=== PATIENT | female | born 1930 | race Caucasian/White ===

== ENCOUNTER 2016-06-01 08:53 | Inpatient (IN) | payer OTHER ==
[2016-06-01] MEDS ORDERED: ZOFRAN IV ONE (09:35)
[2016-06-01] MEDS ORDERED: MORPHINE IV ONE (09:35)
--- NOTE | 2016-06-01 09:35 | PROVIDER DOCUMENTATION ---
HPI-Abdominal Pain/GI Problem <Katelynn Price - Last Filed: 06/01/16 12:30> - General Source: patient - History of Present Illness-ABD Nature of Presenting Problems: 85 y/o WF c daughter at bedside, c/o lower abdominal pain and 10 episodes of diarrhea since yesterday at this time. Reports LLQ pain that radiates down to the suprapubic area. Daughter reports a temperature of 99.5 F last night, which she has been given tylenol for. She has recently been admitted and treated for diverticulitis, treated with Cipro and Flagyl, with last dose 2 weeks ago today. States she hasn't been having many problems until yesterday, but the Bentyl she was rx for the diarrhea has not been helping the constant pain she was having since the diverticulitis. She has been eating a soft diet. <Melva Oakley - Last Filed: 06/01/16 13:51> - General Chief Complaint: Diarrhea Stated Complaint: DIARRHEA,ABD PAIN Time Seen by Provider: 06/01/16 09:21 Allergies/Adverse Reactions: Patient Allergies Allergy/AdvReac Type Severity Reaction Status Date / Time Penicillins Allergy RASH Verified 06/01/16 12:46 procaine HCl * Allergy Unknown Verified 06/01/16 12:46 [From Novocain] Home Medications: Home Medication List Medication Instructions Recorded Confirmed Last Taken Type Levothyroxine [Synthroid] 75 microgm PO DAILY 05/09/16 06/01/16 06/01/16 05:00 History Dicyclomine [Bentyl] 10 mg PO TID PRN #20 capsule 05/11/16 06/01/16 06/01/16 05: 00 Rx Lactobacillus Rhamnosus GG 1 each PO BID #0 capsule 05/11/16 06/01/16 Unknown Rx [Culturelle] Review of Systems - Adult - REVIEW OF SYSTEMS - ADULT Constitutional: reports: see HPI, fever, fatique. denies: chills Eyes: reports: no symptoms reported. denies: blurred vision, double vision, eye pain Ears, Nose, Mouth & Throat: reports: no symptoms reported. denies: ear pain, nose pain, throat pain Cardiovascular: reports: no symptoms reported. denies: chest pain, palpitations Respiratory: reports: no symptoms reported. denies: cough, shortness of breath , wheezing Gastrointestinal: reports: see HPI, abdominal pain, diarrhea, nausea, poor appetite. denies: rectal bleeding, vomiting Genitourinary: reports: no symptoms reported. denies: dysuria Musculoskeletal: reports: no symptoms reported. denies: bone pain, back pain, muscle aches Integumentary: reports: no symptoms reported. denies: rash Neurological: reports: no symptoms reported. denies: ataxia, dizziness/vertigo , headache/migraines Psychiatric: reports: no symptoms reported Endocrine: reports: no symptoms reported Hematologic/Lymphatic: reports: no symptoms reported Allergic/Immunologic: reports: no symptoms reported All Other Systems: Reviewed and Negative <Melva Oakley - Last Filed: 06/01/16 13:51> Past History - Adult - PAST MEDICAL HISTORY-ADULT Review of Records: reports: Old Records Reviewed, Nursing Assessment Review, Medications Reviewed, Social history reviewed & non-contributory. Major Childhood Illnesses: reports: denies history Cardiovascular: reports: denies history Respiratory: reports: denies history Gastrointestinal: reports: denies history Obstetrical/Gynecological: reports: denies history Genitourinary: reports: denies history Musculoskeletal: reports: denies history Neurological: reports: denies history Endocrine/Immune: reports: thyroid disorder Other Conditions: reports: denies history - FAMILY HISTORY Family History: reviewed, not pertinent - SOCIAL HISTORY Smoking: denies Substance Use: none/never Alcohol Use Frequency: never <Melva Oakley - Last Filed: 06/01/16 13:51> Physical Exam-General - PHYSICAL EXAM-ADULT Initial Vital Signs Reviewed: Yes - CONSTITUTIONAL General Appearance: appears well, alert, no apparent distress - EYES Eyes: PERRL/EOMI, pink conjunctivae - HEAD, EARS, NOSE, MOUTH & THROAT HENMT: normocephalic/atraumatic, moist mucous membranes, normal ENT inspection - NECK Neck: non-tender, full range of motion, supple, normal inspection. negative: lymphadenopathy - RESPIRATORY Respiratory: chest non-tender, lungs clear, normal breath sounds, no pleuratic chest pain, no respiratory distress, no accessory muscle use. negative: respiratory distress, decreased breath sounds, accessory muscle use, crackles, rales, rhonchi, wheezing - CARDIOVASCULAR Cardiovascular: normal peripheral pulses, regular rate, rhythm - GASTROINTESTINAL (ABDOMEN) Abdominal Exam: normal bowel sounds, soft, no organomegaly, no pulsatile mass, tenderness (LLQ) - MUSCULOSKELETAL Extremity: normal range of motion, normal gait Peripheral Pulses: radial (R): 2+, radial (L): 2+, dorsalis-pedis (R): 2+, dorsalis-pedis (L): 2+ - SKIN Integumentary: normal color, normal turgor, warm/dry - NEUROLOGIC Neurologic: grossly normal, no motor/sensory deficits - PSYCHIATRIC Psych/Mental Status: normal mood/affect, normal thought content, normal thought process, oriented x 3 <Melva Oakley - Last Filed: 06/01/16 13:51> Progress - EKG 1 Time of EKG reading by physician:: 12:11 EKG Read and Signed by:: Kierra Gupta EKG Interpretation (*Must complete 3 of following elements*): Abnormal Rate: 91 Rhythm: sinus rhythm with premature atrial complexes [place]: left (deviation) QRS: LBB <Katelynn Price - Last Filed: 06/01/16 12:30> - PLAN OF CARE/RESULTS Progress/Plan/Lab Results: I have paged PCP twice, no response in 1 hour. PCP not called back in 2 hours Vital Signs Temp Pulse Resp BP Pulse Ox 06/01/16 11:55 90 14 159/64 96 06/01/16 09:02 98.4 F 82 18 154/56 100 Penicillins Allergy (Verified 06/01/16 12:46) RASH procaine HCl * [From Novocain] Allergy (Verified 06/01/16 12:46) Unknown caused heart to race Levothyroxine [Synthroid] 75 microgm PO DAILY 05/09/16 Dicyclomine [Bentyl] 10 mg PO TID PRN #20 capsule 05/11/16 Lactobacillus Rhamnosus GG [Culturelle] 1 each PO BID #0 capsule 05/11/16 Laboratory 06/01/16 06/01/16 06/01/16 09:20 09:20 09:20 WBC 8.60 RBC 4.73 Hgb 13.8 Hct 40.2 MCV 85.0 MCH 29.2 MCHC 34.3 RDW Std Deviation 13.3 Plt Count 225 MPV 11.2 H Immature Gran % (Auto) 0.2 Neut % (Auto) 62.5 Lymph % (Auto) 23.0 [place] % (Auto) 12.4 H Eos % (Auto) 1.4 Baso % (Auto) 0.5 Immature Gran # (Auto) 0.02 Neut # (Auto) 5.37 Lymph # (Auto) 1.98 [place] # (Auto) 1.07 H Eos # (Auto) 0.12 Baso # (Auto) 0.04 Sodium 131 L Potassium 2.9 L Chloride 89 L Carbon Dioxide 26 Anion Gap 16 BUN 9 Creatinine 0.7 Estimated GFR/1.73 m2 > 60 BUN/Creatinine Ratio 13 Glucose 107 H Calculated Osmolality 262 Calcium 8.8 Total Bilirubin 0.74 AST 28 ALT 18 Alkaline Phosphatase 59 Total Protein 6.3 Albumin 3.6 Globulin 2.7 Albumin/Globulin Ratio 1.3 Amylase 52 Lipase 25 Urine Source CLEAN CATCH Urine Color YELLOW Urine Turbidity HAZY Urine pH 6.0 Ur Specific [place] 1.017 Urine Protein 30 A Ur Glucose (Stick) NEGATIVE Ur Ketones (Stick) NEGATIVE Urine Blood TRACE A Urine Nitrite NEGATIVE Urine Bilirubin NEGATIVE Urobilinogen Dipstick NORMAL Urine Leukocytes LARGE A Urine WBC (Auto) TNTC A Urine RBC (Auto) 10-20 A U Epithel Cells (Auto) >10 A Urine Bacteria (Auto) 2+ Urine Crystals NONE SEEN Small Round Cells RENAL PRESENT Urine Casts NONE SEEN Urine Yeast-like Cells NONE SEEN Orders Category Date Time Status Admit - [facility] Routine AdmDCTranf 06/01/16 13:49 Ordered Saline Loc NOW Care 06/01/16 09:35 Active AMYLASE [CHEM] Stat Lab 06/01/16 09:20 Completed C DIFF TOXIN [STOOL] Stat Lab 06/01/16 12:59 Received CBC WITH ELECTRONIC DIFF [HEME] Stat Lab 06/01/16 09:20 Completed COMPREHENSIVE METABOLIC PANEL [CHEM] Stat Lab 06/01/16 09:20 Completed LIPASE [CHEM] Stat Lab 06/01/16 09:20 Completed OVA AND PARASITE W/TRICHROME [STOOL] Stat Lab 06/01/16 12:59 Received STOOL CULTURE [RM] Routine Lab 06/01/16 12:59 Received URINALYSIS W/POSS RFLX CULT [URINALYSIS] Stat Lab 06/01/16 09:20 Completed URINE CULTURE [RM] Routine Lab 06/01/16 10:30 Received URINE MANUAL MICROSCOPIC [URINALYSIS] Stat Lab 06/01/16 09:20 Completed WBC STOOL [STOOL] Stat Lab 06/01/16 12:59 Received 0.9% Sodium Chloride Inj [Ns] 1,000 ml Med 06/01/16 11:00 Active IV 85 mls/hr CefTRIAXONE 1 GM/NS [Rocephin 1 gm/Ns] 50 ml Med 06/01/16 10:40 Discontinued IV NOW Flagyl 500 mg IV Now Med 06/01/16 13:48 Ordered Metronidazole 500 mg/Ns [Flagyl 500 mg/Ns] 100 ml IV NOW Levaquin 750 mg/D5w IV Now Med 06/01/16 13:48 Ordered Levofloxacin 750 mg/D5w [Levaquin 750 mg/D5w] 150 ml IV NOW Morphine Med 06/01/16 09:57 Discontinued 2 mg .ROUTE .STK-MED ONE Morphine Med 06/01/16 09:35 Discontinued 2 mg IV NOW ONE Ondansetron [Zofran] Med 06/01/16 09:35 Discontinued 4 mg IV NOW ONE Potassium Chloride 10 Meq/Swi 100 ml Med 06/01/16 11:00 Discontinued IV ONCE Potassium Chloride E.r. [Klor-Con] Med 06/01/16 13:48 Once 20 meq PO NOW ONE EKG [EKG] Stat Ther 06/01/16 11:50 Draft Transfer/Admit Order [TRANSFER] Routine Transfer 06/01/16 13:50 Ordered - REASSESSMENT Reassessment #1 Time Reassessed: 12:24 (discussed with patient and family. They would feel more comfortable with admission. HR now 95. K stopped secondary to burning. ) Status: unchanged - CONSULTS/PCP/HOSPITALIST Notification #1 *Consult/PCP/Hospitalist*: Dr. Figueredo, PCP Time Discussed: 13:50 Reason/Comments: diarrhea, uti, dehydration, hyponatremia, hypokalemia Consult Disposition: Admit (start Levoquin and Flagyl) <Melva Oakley - Last Filed: 06/01/16 13:51> Departure <Katelynn Price - Last Filed: 06/01/16 12:30> - Departure Time of Disposition Order: 13:50 Certified Medical Emergency: Emergent <Melva Oakley - Last Filed: 06/01/16 13:51> - Departure DIAGNOSIS: Acute UTI, Hyponatremia, Hypokalemia, Dehydration Disposition: ADMITTED INPATIENT 09 Condition: Stable Attestation - Physician/ RIKKI Attestation Patient care was provided by Advanced Practice Provider:: Yes Advanced Practice Provider:: Melva Oakley Advanced Practice Provider documentation review:: The Mid-level provider documentation, treatment plan and medical decision making was reviewed by the physician who agrees with all treatment and medical decision making by the MLP. <Melva Oakley - Last Filed: 06/01/16 13:51> Physician Attestation
[2016-06-01] MEDS ORDERED: MORPHINE ONE (09:57)
[2016-06-01 10:00] LABS: MANUAL DIFF NEEDED? NO; URINE SOURCE CLEAN CATCH
[2016-06-01 10:15] LABS: BASO% 0.5 % (0.0-0.8); EOS# 0.12 X1000 (0.0-0.7); EOS% 1.4 % (0.0-10.0); HEMATOCRIT 40.2 % (37.0-47.0); HEMOGLOBIN 13.8 g/dL (12.0-16.0); IMM GRAN# 0.02 X1000 (0.0-0.04); IMM GRAN% 0.2 % (0.0-0.5); LYMPH# 1.98 X1000 (1.2-3.4); MCH 29.2 PG (27-31); MCHC 34.3 g/dL (33-37); MONO# 1.07 X1000 (0.11-0.59); MONO% 12.4 % (1.7-9.3); MPV 11.2 FL (7.4-10.4); NEUT% 62.5 % (42.2-75.2); PLT 225 X1000 (130-400); RBC 4.73 XMIL (4.2-5.4)
[2016-06-01 10:16] LABS: BILIRUBIN URINE NEGATIVE (NEGATIVE); BLOOD URINE TRACE (NEGATIVE); COLOR YELLOW; GLUCOSE URINE NEGATIVE (NEGATIVE); LEUKOCYTES URINE LARGE (NEGATIVE); NITRITE URINE NEGATIVE (NEGATIVE); PROTEIN URINE 30 mg/dL (NEGATIVE); SP GRAVITY URINE 1.017; TURBIDITY URINE HAZY (CLEAR); UROBILINOGEN URINE NORMAL (NORMAL)
[2016-06-01 10:21] LABS: URINE MICRO REVIEW NEEDED? YES
[2016-06-01 10:25] LABS: UR EPITHELIAL CELLS >10 /HPF (<10); URINE BACTERIA 2+ /HPF; URINE CULTURE NEEDED? YES; URINE WBC TNTC /HPF (<10)
[2016-06-01 10:34] LABS: URINE CASTS NONE SEEN; URINE CRYSTALS NONE SEEN
[2016-06-01 10:35] LABS: URINE SMALL ROUND CELLS RENAL PRESENT
[2016-06-01 10:40] LABS: AGAP 16; ALBUMIN 3.6 g/dL (3.5-5.0); ALKALINE PHOSPHATASE 59 U/L (32-104); AMYLASE 52 U/L (20-200); BUN 9 mg/dL (8-22); CALCIUM 8.8 mg/dL (8.8-10.2); CHLORIDE 89 mmol/L (98-107); COSMO 262; GOT 28 U/L (10-30); GPT 18 U/L (10-36); LIPASE 25 U/L (13-60); POTASSIUM 2.9 mmol/L (3.5-5.1); SODIUM 131 mmol/L (136-145); TCO2 26 mmol/L (25-35); TOTAL BILIRUBIN 0.74 mg/dL (0.20-1.00); TOTAL PROTEIN 6.3 g/dL (6.3-8.3)
[2016-06-01] MEDS ORDERED: ROCEPHIN 1 GM/NS 50 ML IV ONE (10:40)
[2016-06-01] MEDS ORDERED: POTASSIUM CHLORIDE 10 MEQ/SWI 100 ML IV ONE (11:00)
[2016-06-01] MEDS ORDERED: NS 1,000 ML IV ONE (11:00)
--- NOTE | 2016-06-01 12:38 | EKG Report ---
Test Performed on : 06/01/2016 12:11:35 PM Test Reason : hypokalemia Blood Pressure : / mmHG Vent. Rate : 091 BPM Atrial Rate : 091 BPM P-R Int : 160 ms QRS Dur : 124 ms QT Int : 378 ms P-R-T Axes : 000 -59 111 degrees QTc Int : 464 ms Sinus rhythm. with premature atrial complexes. Left axis deviation Left bundle branch block Abnormal ECG When compared with ECG of 01-JUN-2016 12:00, (Unconfirmed) Sinus rhythm. has replaced Atrial fibrillation. Unconfirmed Result
[2016-06-01] MEDS ORDERED: LEVAQUIN 750 MG/D5W 150 ML IV ONE (13:48)
[2016-06-01] MEDS ORDERED: FLAGYL 500 MG/NS 100 ML IV ONE (13:48)
[2016-06-01] MEDS ORDERED: KLOR-CON PO ONE (13:48)
[2016-06-01] MEDS: TYLENOL PO PRN (15:59)
--- NOTE | 2016-06-01 19:47 | HISTORY AND PHYSICAL ---
CHIEF COMPLAINT: Abdominal pain, diarrhea, low-grade fever. HISTORY OF PRESENT ILLNESS: She is an 85-year-old, pleasant, white female, recently discharged from the hospital last month for diverticulitis. She came in with diarrhea and lower abdominal cramps. Workup in the ER: Potassium is 2.9, sodium is 131. Stool cultures had C. difficile positive and admitted to the hospital for C. difficile colitis. Results were discussed with the patient's family. She was started on IV fluids, IV Flagyl, Welchol and replace the potassium. Currently stable. PAST MEDICAL HISTORY: Hypertension, hypothyroidism, diverticulitis recently, osteopenia, acid reflux disease. PAST SURGICAL HISTORY: Bilateral cataract surgery, partial hysterectomy, hemorrhoidectomy. MEDICATIONS: Dyazide, Synthroid, Culturelle, Cipro last month. ALLERGIES: Penicillin and tramadol. SOCIAL HISTORY: Single. Retired. Lives in [place]. No smoking. No alcohol. FAMILY HISTORY: Father of prostate cancer at 70. Mom of old age at 101. HEALTH MAINTENANCE: Flu vaccine 2015. Pneumococcal vaccine 2009. Last colonoscopy in [place]. Waiting for colonoscopy by Dr. Ureña. DEXA scan 2013. Mammography August 2013. REVIEW OF SYSTEMS: HEENT: No headache. No dizziness. No earache. No sore throat. Neck: No goiter. No lymphadenopathy. No bruit. Cardiopulmonary: No chest pain, shortness of breath, PND, orthopnea. Gastrointestinal: Lower abdominal cramps, diarrhea. Genitourinary: History of hesitancy, frequency. Extremities: No swelling of legs. No joint pain. Skin: No skin rashes. Neurologic: No focal symptoms or weakness. PHYSICAL EXAMINATION: VITAL SIGNS: Low-grade fever. Vitals are stable. 5 feet 2 inches. 150 pounds. HEENT EXAMINATION: Atraumatic, normocephalic. Pupils equal and reactive to light. TMs are normal. Nose and throat within normal limits. NECK: Supple. No lymphadenopathy. No goiter. CHEST: Bilateral air entry. No rales. No wheezing. HEART: Sounds are regular. No murmur. ABDOMEN: Belly is soft. Tender in the lower abdominal area. No signs of guarding or rigidity. RECTAL: Deferred. EXTREMITIES: No peripheral edema, cyanosis or clubbing. NEUROLOGIC EXAMINATION: Nonfocal. INVESTIGATIONS: CBC: White cell count 8.6, hematocrit 40, platelets 225,000. SMA 7 is normal. Sodium 131, potassium 2.9, glucose 107. LFTs: Amylase and lipase normal. Urinalysis: Positive for UTI. Stool cultures: C. difficile is positive. ASSESSMENT AND PLAN: 1. An 85-year-old white female, recently treated for diverticulitis with Cipro and Flagyl. Admitted to the hospital with diarrhea, dehydration with C. difficile colitis. Plan is IV fluids. 2. IV potassium. 3. DVT prophylaxis with antithrombotic stockings. 4. IV Flagyl, Welchol and Culturelle. CT scan of the abdomen and pelvis in the morning. Continue home medications. 5. Gastrointestinal prophylaxis with IV Protonix. 6. We will follow up on the labs in the morning.
[2016-06-01] MEDS: POTASSIUM CHLORIDE 20 MEQ/SWI 100 ML IV SCH (20:40)
[2016-06-01] MEDS: ZOFRAN IV PRN (20:41)
[2016-06-01] MEDS: PROTONIX IV SCH (20:41)
[2016-06-01] MEDS: CULTURELLE PO SCH (20:41)
[2016-06-01] MEDS: NS 1,000 ML IV SCH (22:38)
[2016-06-01] MEDS: BENTYL PO PRN (22:59)
[2016-06-01] MEDS: WELCHOL PO SCH (22:59)
[2016-06-02] MEDS: TYLENOL PO PRN (00:40)
[2016-06-02] MEDS: FLAGYL 500 MG/NS 100 ML IV SCH ×3 (01:59→19:00)
[2016-06-02 06:40] LABS: MANUAL DIFF NEEDED? NO
[2016-06-02 06:44] LABS: BASO% 0.6 % (0.0-0.8); EOS# 0.13 X1000 (0.0-0.7); EOS% 1.5 % (0.0-10.0); HEMATOCRIT 34.6 % (37.0-47.0); HEMOGLOBIN 11.8 g/dL (12.0-16.0); IMM GRAN# 0.02 X1000 (0.0-0.04); IMM GRAN% 0.2 % (0.0-0.5); LYMPH# 1.61 X1000 (1.2-3.4); LYMPH% 18.5 % (20.5-51.1); MCH 29.2 PG (27-31); MCHC 34.1 g/dL (33-37); MCV 85.6 FL (81-99); MONO# 1.34 X1000 (0.11-0.59); MONO% 15.4 % (1.7-9.3); MPV 10.8 FL (7.4-10.4); NEUT% 63.8 % (42.2-75.2); PLT 203 X1000 (130-400); RBC 4.04 XMIL (4.2-5.4)
[2016-06-02] MEDS: NORCO-5 PO PRN ×2 (06:49→21:54)
[2016-06-02] MEDS: BENTYL PO PRN (06:49)
[2016-06-02] MEDS: ZOFRAN IV PRN (06:53)
[2016-06-02 07:03] LABS: AGAP 11; BUN 9 mg/dL (8-22); CALCIUM 8.2 mg/dL (8.8-10.2); CHLORIDE 99 mmol/L (98-107); COSMO 268; SODIUM 135 mmol/L (136-145); TCO2 25 mmol/L (25-35)
[2016-06-02] MEDS ORDERED: WELCHOL PO SCH (09:00)
--- NOTE | 2016-06-02 09:51 | Diag Imaging Result Document ---
PROCEDURE NAME: CT ABD/PELVIS W/ IV CONT ONLY - 06/02/2016 CT ABDOMEN AND PELVIS WITH IV CONTRAST: COMPARISON: 05/10/2016. FINDINGS: There is a new focal opacity at the periphery of the right lung base, likely representing focal atelectasis versus pneumonitis. There is sigmoid colonic diverticulosis. Although there is still inflammatory change and thickening involving the segment of the sigmoid colon that was consistent with diverticulitis on the previous study, there is now actually diffuse thickening that involves practically the entire colon, but is much more significant at the descending colon and sigmoid colon. There is milder transverse colonic thickening and surrounding inflammatory change and, perhaps, minimal involvement of the ascending colon. This pattern is consistent with colitis, likely infectious, as opposed to the focal diverticulitis seen on the previous study. No discrete loculated fluid collection is identified to indicate abscess. There is no evidence of bowel obstruction. There is no evidence of free abdominal gas. The abdomen and pelvis are otherwise essentially stable, as compared to the recent previous study. IMPRESSION: Development of diffuse colitis, likely infectious, that is most severe at the descending and sigmoid colon.
[2016-06-02] MEDS: CULTURELLE PO SCH ×2 (10:46→21:54)
[2016-06-02] MEDS: WELCHOL PO SCH ×3 (10:46→17:18)
[2016-06-02] MEDS: SYNTHROID PO SCH (10:46)
[2016-06-02] MEDS: SODIUM CHLORIDE 0.9% INJ SCH (21:54)
[2016-06-02] MEDS: PROTONIX IV SCH (21:55)
[2016-06-02] MEDS: NS 1,000 ML IV SCH (21:55)
[2016-06-03] MEDS: FLAGYL 500 MG/NS 100 ML IV SCH ×4 (03:00→19:38)
[2016-06-03] MEDS: NORCO-5 PO PRN ×2 (06:55→19:36)
[2016-06-03] MEDS: CULTURELLE PO SCH ×3 (08:48→23:49)
[2016-06-03] MEDS: WELCHOL PO SCH ×3 (08:48→16:40)
[2016-06-03] MEDS: SYNTHROID PO SCH (08:48)
[2016-06-03] MEDS: NS 1,000 ML IV SCH ×3 (10:56→23:49)
[2016-06-03] MEDS: PROTONIX IV SCH (19:37)
[2016-06-03] MEDS: SODIUM CHLORIDE 0.9% INJ SCH (19:37)
[2016-06-04] MEDS: NORCO-5 PO PRN (01:49)
[2016-06-04] MEDS: FLAGYL 500 MG/NS 100 ML IV SCH ×3 (04:30→21:49)
[2016-06-04] MEDS: WELCHOL PO SCH ×3 (09:55→17:40)
[2016-06-04] MEDS: SYNTHROID PO SCH (09:55)
[2016-06-04] MEDS: CULTURELLE PO SCH ×2 (09:55→21:49)
[2016-06-04] MEDS: NS 1,000 ML IV SCH ×2 (10:47→23:02)
[2016-06-04] MEDS: SODIUM CHLORIDE 0.9% INJ SCH (21:49)
[2016-06-04] MEDS: PROTONIX IV SCH (21:49)
[2016-06-05] MEDS: FLAGYL 500 MG/NS 100 ML IV SCH ×3 (03:20→20:38)
[2016-06-05] MEDS: WELCHOL PO SCH ×3 (10:36→17:27)
[2016-06-05] MEDS: SYNTHROID PO SCH (10:36)
[2016-06-05] MEDS: CULTURELLE PO SCH ×2 (10:36→20:38)
[2016-06-05] MEDS: SODIUM CHLORIDE 0.9% INJ SCH (20:38)
[2016-06-05] MEDS: PROTONIX IV SCH (20:38)
[2016-06-06] MEDS: FLAGYL 500 MG/NS 100 ML IV SCH ×3 (03:13→20:29)
[2016-06-06 06:34] LABS: MANUAL DIFF NEEDED? NO
[2016-06-06 06:47] LABS: BASO% 1.2 % (0.0-0.8); EOS# 0.38 X1000 (0.0-0.7); EOS% 4.4 % (0.0-10.0); HEMATOCRIT 35.3 % (37.0-47.0); HEMOGLOBIN 11.7 g/dL (12.0-16.0); IMM GRAN# 0.28 X1000 (0.0-0.04); IMM GRAN% 3.3 % (0.0-0.5); LYMPH# 4.31 X1000 (1.2-3.4); LYMPH% 50.4 % (20.5-51.1); MCH 28.7 PG (27-31); MCHC 33.1 g/dL (33-37); MCV 86.5 FL (81-99); MONO# 0.86 X1000 (0.11-0.59); MONO% 10.1 % (1.7-9.3); MPV 10.4 FL (7.4-10.4); NEUT% 30.6 % (42.2-75.2); PLT 255 X1000 (130-400); RBC 4.08 XMIL (4.2-5.4)
[2016-06-06 07:23] LABS: AGAP 12; BUN 4 mg/dL (8-22); CALCIUM 7.8 mg/dL (8.8-10.2); CHLORIDE 106 mmol/L (98-107); COSMO 281; POTASSIUM 3.8 mmol/L (3.5-5.1); SODIUM 143 mmol/L (136-145); TCO2 25 mmol/L (25-35)
[2016-06-06] MEDS: CULTURELLE PO SCH ×2 (10:02→20:29)
[2016-06-06] MEDS: WELCHOL PO SCH ×3 (10:02→17:01)
[2016-06-06] MEDS: SYNTHROID PO SCH (10:02)
[2016-06-06] MEDS: PROTONIX IV SCH (20:29)
[2016-06-06] MEDS: SODIUM CHLORIDE 0.9% INJ SCH (20:29)
[2016-06-07] MEDS: FLAGYL 500 MG/NS 100 ML IV SCH ×3 (03:35→21:42)
[2016-06-07] MEDS: PRILOSEC PO SCH ×2 (07:05→23:45)
[2016-06-07] MEDS: SYNTHROID PO SCH (08:17)
[2016-06-07] MEDS: CULTURELLE PO SCH ×2 (08:17→21:41)
[2016-06-07] MEDS: WELCHOL PO SCH ×3 (08:17→16:45)
[2016-06-07] MEDS ORDERED: APRESOLINE IV PRN (14:17)
--- NOTE | 2016-06-07 15:13 | Diag Imaging Result Document ---
PROCEDURE NAME: CHEST-PORTABLE - 06/07/2016 SINGLE FRONTAL RADIOGRAPH OF THE CHEST: COMPARISON: None available. FINDINGS: There is suggestion of mild interstitial scarring at the lung bases. The lungs are essentially clear, otherwise. Cardiac silhouette is grossly unremarkable. IMPRESSION: Interstitial thickening at the lung bases suggesting likely mild scarring.
[2016-06-07] MEDS: BENTYL PO PRN (21:41)
[2016-06-07] MEDS: NORCO-5 PO PRN (23:45)
[2016-06-07] MEDS: ZOFRAN IV PRN (23:45)
[2016-06-08] MEDS: FLAGYL 500 MG/NS 100 ML IV SCH (05:55)
[2016-06-08] MEDS: PRILOSEC PO SCH (06:34)
[2016-06-08] MEDS: NORCO-5 PO PRN (06:37)
[2016-06-08 07:51] VITALS: BP 153/63
[2016-06-08] MEDS: CULTURELLE PO SCH (09:27)
[2016-06-08] MEDS: SYNTHROID PO SCH (09:27)
[2016-06-08] MEDS: WELCHOL PO SCH (09:27)
--- NOTE | 2016-06-10 21:35 | DISCHARGE SUMMARY ---
ADMISSION DATE: 06/01/2016 DISCHARGE DATE: 06/08/2016 DISCHARGING DIAGNOSIS: Abdominal pain, diarrhea due to Clostridium difficile colitis. SECONDARY DIAGNOSES: 1. Hypertension. 2. Hypothyroidism. 3. Diverticulitis. 4. Osteopenia. 5. Acid reflux disease. BRIEF HISTORY: Please see the H and P that was done on 06/01/2016. In brief she is an 85-year- old white female, recently was treated a month ago for sigmoid diverticulitis. Patient was sent home on antibiotics with Levaquin and Flagyl. She is supposed to get colonoscopy in 6 weeks. In the meantime she had a recurrence of symptoms for the last 2 days with diarrhea associated with dehydration. Sodium 131, potassium 2.9. Stool cultures are positive for C. difficile. As a result, hospital admission was warranted. HOSPITAL COURSE: She was given IV fluids, replaced the potassium and also started on IV Flagyl and Welchol. Patient slowly improved. During this admission patient also had a CT scan of the abdomen and pelvis and it showed development of diffuse colitis consistent with C. difficile. Patient was also given probiotics and slowly GI soft diet without milk products and greasy products. She is tolerating very well. LABS: At the time of discharge. CBC. White cell count 8.5, hematocrit 35, platelets 255,000. SMA 7. Sodium 143, potassium 3.8, chloride 106, BUN 4, creatinine 0.7, calcium 7.8. LFTs were normal. Microbiology. Urine cultures were negative. C. difficile toxin A and B were positive. DISCHARGE INSTRUCTIONS: 1. Outpatient home health care. 2. Synthroid 75 mcg daily. 3. Probiotics 1 tablet p.o. b.i.d. 4. Bentyl as needed. 5. Dyazide 1 tablet daily. 6. Flagyl 500 t.i.d. for 2 weeks. FOLLOWUP: My office in next week.
== END 2016-06-08 10:30 | DRG 372 ==
LOC: ED 08:53 → 3N 14:49
PROVIDERS: ADMIT Internal Medicine; ATTEND Internal Medicine
DX: A04.7 Enterocolitis due to Clostridium difficile (principal); E87.1 Hypo-osmolality and hyponatremia; E86.0 Dehydration; N39.0 Urinary tract infection, site not specified; E83.51 Hypocalcemia; D64.9 Anemia, unspecified; I10 Essential (primary) hypertension; E03.9 Hypothyroidism, unspecified; K21.9 Gastro-esophageal reflux disease without esophagitis; M85.80 Other specified disorders of bone density and structure, unspecified site; Z79.899 Other long term (current) drug therapy; Z80.42 Family history of malignant neoplasm of prostate
CPT/HCPCS: 71010; 74177; 80048; 80053; 81001; 82150; 83690; 85025; 87045; 87046; 87088; 87177; 87324; 88313; 89055; 93005; 96365; 96366; 96367; 96375; C9113; J0360; J0696; J2270; J2405; J3480; J7030; Q9967; S0030; S0164